=== PATIENT | female | born 1995 | race Caucasian/White ===

== ENCOUNTER 2017-01-04 12:52 | Emergency (ER) | payer OTHER ==
[~2017-01-04] VITALS: Ht 160 cm; Wt 59.0 kg
[2017-01-04 13:03] VITALS: BP 109/79
--- NOTE | 2017-01-04 13:35 | NUR ---
Patient to bed 9 at this time.
--- NOTE | 2017-01-04 13:36 | NUR ---
21/F BIB SELF FOR LOW BACK PAIN RT SIDE X 1 DAY. DENIES PAINFUL URINATION.DENIES N/V/D; SKIN IS PINK/WARM/DRY; AAOX4 WITH EVEN AND STEADY GAIT; LUNGS CLEAR BL; PT DENIES ANY FEVER, CP, SOB, OR COUGH AT THIS TIME; PATIENT STATES PAIN OF 6/10 AT THIS TIME; PATIENT POSITIONED FOR COMFORT; HOB ELEVATED; BEDRAILS UP X2; BED DOWN. ER MD MADE AWARE OF PT STATUS.
[2017-01-04 14:10] LABS: BILIRUBIN,URINE NEGATIVE (NEGATIVE); BLOOD, URINE 1+ (NEGATIVE); COLOR,URINE YELLOW (YELLOW); LEUKOCYTE ESTERASE ,URINE NEGATIVE (NEGATIVE); NITRITE, URINE NEGATIVE (NEGATIVE); UGLUCOSE NEGATIVE (NEGATIVE)
[2017-01-04 14:20] LABS: APPEARANCE,URINE CLEAR (CLEAR); RBC,URINE 0-5 (RARE) /HPF (0-5); WBC,URINE NONE SEEN /HPF (0-5)
--- NOTE | 2017-01-04 14:20 | NUR ---
US AT BEDSIDE
--- NOTE | 2017-01-04 15:00 | NUR ---
Patient appears to be resting comfortably in bed. Vital Signs within normal limits. Respirations even and unlabored.WILL CONTINUE TO MONITOR.
--- NOTE | 2017-01-04 16:31 | NUR ---
Patient being reevaluated by DR CRAIN at bedside.
[2017-01-04 16:42] VITALS: BP 102/60
== END 2017-01-04 16:42 | disposition home or self-care (01) ==
LOC: MED 12:52
DX: R10.9 Unspecified abdominal pain (principal); M54.5 Low back pain; Z88.0 Allergy status to penicillin
CPT/HCPCS: 36415; 76700; 76856; 81001; 81025; 84702; 99285; Q0092

== ENCOUNTER 2017-04-09 10:41 | Emergency (ER) | payer OTHER ==
[~2017-04-09] VITALS: Ht 160 cm; Wt 595.6 kg
[2017-04-09 10:56] VITALS: BP 124/65
--- NOTE | 2017-04-09 12:20 | NUR ---
PATIENT PRESENTS TO ED WITH PELVIC CRAMPING X 1 WK . PT STATES . DENIES N/V/D; SKIN IS PINK/WARM/DRY; AAOX4 WITH EVEN AND STEADY GAIT; LUNGS CLEAR BL; HR EVEN AND REGULAR; PT DENIES ANY FEVER, CP, SOB, OR COUGH AT THIS TIME; PATIENT STATES PAIN OF 8/10 AT THIS TIME; VSS; PATIENT POSITIONED FOR COMFORT; HOB ELEVATED; BEDRAILS UP X2; BED DOWN. ER MD MADE AWARE OF PT STATUS.
[2017-04-09] MEDS: DEXT 5% / LACT RING 1,000 ML IV ONE (13:35)
--- NOTE | 2017-04-09 14:00 | NUR ---
ULTRASOUND AT BEDSIDE
[2017-04-09 14:06] LABS: BASOPHILS # (AUTO) 0.2 K/uL (0.00-0.22); BASOPHILS % (AUTO) 2.8 % (0.0-2.0); EOSINOPHILS % (AUTO) 0.4 % (0.0-4.0); HEMATOCRIT 37.4 % (36-48); HEMOGLOBIN 12.9 g/dL (12.0-16.0); LYMPHOCYTES # (AUTO) 1.4 K/uL (2.5-16.5); LYMPHOCYTES % (AUTO) 20.9 % (20.5-51.1); MEAN CORPUSCULAR HEMOGLOBIN 31 pg (27-31); MEAN CORPUSCULAR HGB CONC 35 g/dL (33-37); MEAN CORPUSCULAR VOLUME 89 fL (80-94); MONOCYTES # (AUTO) 0.4 K/uL (0.8-1.0); MONOCYTES % (AUTO) 6.6 % (1.7-9.3); NEUTROPHILS # (AUTO) 4.7 K/uL (1.8-7.7); NEUTROPHILS % (AUTO) 69.3 % (42.2-75.2); PLATELET COUNT (AUTO) 196 K/uL (140-450); RED BLOOD CELL COUNT(AUTO) 4.21 MIL/uL (4.20-5.40); WHITE BLOOD COUNT (AUTO) 6.7 K/uL (4.8-10.8)
[2017-04-09 14:08] LABS: APPEARANCE,URINE CLEAR (CLEAR); BILIRUBIN,URINE NEGATIVE (NEGATIVE); BLOOD, URINE NEGATIVE (NEGATIVE); COLOR,URINE YELLOW (YELLOW); LEUKOCYTE ESTERASE ,URINE NEGATIVE (NEGATIVE); NITRITE, URINE NEGATIVE (NEGATIVE); PH,URINE 7.5 (5.0-9.0); UGLUCOSE NEGATIVE (NEGATIVE)
--- NOTE | 2017-04-09 14:09 | NUR ---
BLOOD COLLECTED BY LAB
--- NOTE | 2017-04-09 17:07 | NUR ---
Patient discharged with v/s stable. Written and verbal after care instructions given and explained. Patient alert, oriented and verbalized understanding of instructions. Ambulatory with steady gait. All questions addressed prior to discharge. ID band removed. Patient advised to follow up with PMD. Rx of MISSION given. Patient educated on indication of medication including possible reaction and side effects. Opportunity to ask questions provided and answered.
[2017-04-09 17:08] VITALS: BP 116/78
== END 2017-04-09 17:07 | disposition home or self-care (01) ==
LOC: MED 10:41
DX: O26.891 Other specified pregnancy related conditions, first trimester (principal); R10.2 Pelvic and perineal pain; Z3A.01 Less than 8 weeks gestation of pregnancy
CPT/HCPCS: 36415; 76817; 81003; 81025; 84702; 85025; 86900; 86901; 96365; 96366; 99285; Q0092

== ENCOUNTER 2021-04-19 08:19 | Emergency (ER) | payer OTHER ==
[~2021-04-19] VITALS: Ht 157.5 cm; Wt 67.6 kg
[2021-04-19 08:35] VITALS: BP 116/76
--- NOTE | 2021-04-19 08:55 | NUR ---
md assessing in triage room at this time
[2021-04-19] MEDS ORDERED: PYR100 PO (09:03)
[2021-04-19] MEDS ORDERED: CEPH250C16 PO (09:03)
[2021-04-19 09:28] VITALS: BP 116/76
--- NOTE | 2021-04-19 09:29 | NUR ---
Patient discharged with v/s stable. Written and verbal after care instructions given and explained. Patient alert, oriented and verbalized understanding of instructions. Ambulatory with steady gait. All questions addressed prior to discharge. ID band removed. Patient advised to follow up with PMD. Rx of cephalexin, phenazopyridine hcl (sent) given. Patient educated on indication of medication including possible reaction and side effects. Opportunity to ask questions provided and answered. work note given
== END 2021-04-19 09:29 | disposition home or self-care (01) ==
LOC: MED 08:19
DX: N39.0 Urinary tract infection, site not specified (principal); Z79.899 Other long term (current) drug therapy
CPT/HCPCS: 81002; 81025; 99283

== ENCOUNTER 2021-05-17 02:10 | Emergency (ER) | payer OTHER ==
[~2021-05-17] VITALS: Ht 157.5 cm; Wt 68.0 kg
[~2021-05-17 02:10] MED LIST: CEPH250C16 PO; PYR100 PO
[2021-05-17 02:25] VITALS: BP 135/89
--- NOTE | 2021-05-17 02:28 | NUR ---
TO LOBBY A/W BED AMBULATORY
[2021-05-17] MEDS ORDERED: KETOROLAC 15 MG/ML VIAL IVP ONE (03:15)
[2021-05-17] MEDS ORDERED: NACL 0.9% 1,000 ML IV ONE (03:15)
[2021-05-17] MEDS ORDERED: ONDANSETRON 4 MG/2 ML VIAL IVP ONE (03:15)
--- NOTE | 2021-05-17 03:30 | NUR ---
URINE TAKEN TO LAB
[2021-05-17] MEDS ORDERED: MORPHINE SULFATE 4 MG/ML SYR IVP ONE (03:35)
[2021-05-17 03:43] LABS: BASOPHILS % (AUTO) 0.5 % (0.0-2.0); EOSINOPHILS % (AUTO) 0.4 % (0.0-4.0); HEMATOCRIT 37.8 % (36-48); HEMOGLOBIN 12.5 g/dL (12.0-16.0); LYMPHOCYTES # (AUTO) 0.8 K/uL (2.5-16.5); LYMPHOCYTES % (AUTO) 7.9 % (20.5-51.1); MEAN CORPUSCULAR HEMOGLOBIN 31 pg (27-31); MEAN CORPUSCULAR HGB CONC 33 g/dL (33-37); MEAN CORPUSCULAR VOLUME 92.7 fL (80-94); MONOCYTES # (AUTO) 0.4 K/uL (0.8-1.0); MONOCYTES % (AUTO) 4.1 % (1.7-9.3); NEUTROPHILS # (AUTO) 9.3 K/uL (1.8-7.7); PLATELET COUNT (AUTO) 200 K/uL (140-450); RED BLOOD CELL COUNT(AUTO) 4.07 MIL/uL (4.20-5.40); RED CELL DISTRIBUTION WIDTH 13.3 % (11.6-13.7); WHITE BLOOD COUNT (AUTO) 10.7 K/uL (4.8-10.8)
[2021-05-17 03:44] LABS: BILIRUBIN,URINE NEGATIVE (NEGATIVE); BLOOD, URINE 3+ (NEGATIVE); COLOR,URINE YELLOW (YELLOW); LEUKOCYTE ESTERASE ,URINE NEGATIVE (NEGATIVE); NITRITE, URINE NEGATIVE (NEGATIVE); PH,URINE 7.5 (5.0-9.0); UGLUCOSE NEGATIVE (NEGATIVE)
--- NOTE | 2021-05-17 03:50 | NUR ---
26 Y/O FEMALE PATIENT PRESENTS TO ED WITH C/O LEFT ABD PAIN X TODAY. PT STATES PAIN RADIATES TO THE RIGHT SIDE OF THE ABD, IT IS SHARP AND CONSTANT. DENIES V/D; REPORTS STOOL IS SOFTER THAN USUAL X 6 DAYS; SKIN IS PINK/WARM/DRY; AAOX4 WITH EVEN AND STEADY GAIT; LUNGS CLEAR BL; HR EVEN AND REGULAR; PT DENIES ANY FEVER, CP, SOB, OR COUGH AT THIS TIME; PATIENT STATES PAIN OF 7/10 AT THIS TIME; VSS; PATIENT POSITIONED FOR COMFORT; HOB ELEVATED; BEDRAILS UP X1; BED DOWN. PMEDHX: DENIES NKDA
--- NOTE | 2021-05-17 04:00 | NUR ---
ultrasound at the bedside
[2021-05-17 04:03] LABS: ALBUMIN 3.9 g/dL (3.4-5.0); ANION GAP 4.4 (8-16); APPEARANCE,URINE SLIGHTLY HAZY (CLEAR); CARBON DIOXIDE 30.4 mmol/L (21-32); CREATININE 0.7 mg/dL (0.6-1.3); MAGNESIUM 1.7 mg/dL (1.8-2.4); PHOSPHORUS 3.6 mg/dL (2.5-4.9); POTASSIUM 3.8 mmol/L (3.5-5.1); TOTAL BILIRUBIN 0.3 mg/dL (0.0-1.0)
[2021-05-17 04:06] LABS: RBC,URINE 11-20 (MOD) /HPF (0-5)
--- NOTE | 2021-05-17 04:10 | NUR ---
INFORMED PT ABOUT A POSITIVE TEST AND SINCE PT HAS SAID HER PERIOD WAS 05/06, SHE WAS GIVEN STRONG PAIN MEDICATION. PT STATED "ITS OK I DIDNT THINK I WAS SINCE I GOT MY PERIOD".
[2021-05-17 04:13] LABS: NEUTROPHILS % (AUTO) 87.1 % (42.2-75.2)
[2021-05-17] MEDS ORDERED: ACETAMINOPHEN 325 MG TAB PO ONE (05:55)
[2021-05-17] MEDS ORDERED: cephALEXin 500 MG CAP PO ONE (06:15)
[2021-05-17] MEDS ORDERED: CEPH-588 PO (06:27)
--- NOTE | 2021-05-17 06:46 | NUR ---
PT APPEARS TO BE RESTING. EQUAL RISE AND FALL OF CHEST WALL. VSS. PT IS IN STABLE CONDITION. ALL NEEDS MET AT THIS TIME. BED LOCKED IN LOWEST POSITION, SIDE RAILS X1. MOTHER AT BEDSIDE.
--- NOTE | 2021-05-17 07:16 | NUR ---
Report and continuation of care received from ADRIÁN Roth.
[2021-05-17 08:53] VITALS: BP 103/61
--- NOTE | 2021-05-17 08:53 | NUR ---
Chart checked and completed. The patient's care was reviewed and supervised by Enrrique Bob, RN, RN.
--- NOTE | 2021-05-17 08:54 | NUR ---
Patient discharged with FOR VAGINAL BLEEDING DURING , FIRST TRIMESTER AND ABDOMINAL PAIN v/s stable. Written and verbal after care instructions given. Patient alert, oriented and verbalized understanding of instructions. Ambulatory with steady gait. All questions addressed prior to discharge. ID band removed. Patient advised to follow up with PMD. Rx of CEPHALEXIN given. Opportunity to ask questions provided and answered. WORK OFF NOTE HANDED TO PATIENT.
== END 2021-05-17 08:54 | disposition home or self-care (01) ==
LOC: MED 02:10
DX: O20.8 Other hemorrhage in early pregnancy (principal); O23.41 Unspecified infection of urinary tract in pregnancy, first trimester; F12.90 Cannabis use, unspecified, uncomplicated; Z79.899 Other long term (current) drug therapy; Z98.890 Other specified postprocedural states
CPT/HCPCS: 36415; 76705; 76801; 76856; 80053; 81001; 81025; 83690; 83735; 84100; 84702; 85025; 86900; 86901; 87086; 96361; 96374; 96375; 99285; J1885; J2270; J2405; J7030; Q0092

== ENCOUNTER 2021-05-19 14:39 | Emergency (ER) | payer OTHER ==
[~2021-05-19] VITALS: Ht 157.5 cm; Wt 67.3 kg
[~2021-05-19 14:39] MED LIST changes: +CEPH-588 PO
[2021-05-19 14:52] VITALS: BP 122/61
--- NOTE | 2021-05-19 16:16 | NUR ---
Patient discharged with v/s stable. Written and verbal after care instructions given and explained. Patient verbalized understanding. Ambulatory with steady gait. All questions addressed prior to discharge. Advised to follow up with PMD. PT SEEN AND D/C BY DR DUKES, NO NURSING INTERVENTIONS PROVIDED
== END 2021-05-19 16:16 | disposition home or self-care (01) ==
LOC: MED 14:39
DX: O03.9 Complete or unspecified spontaneous abortion without complication (principal)
CPT/HCPCS: 36415; 84702; 99283

== ENCOUNTER 2021-05-22 16:10 | Emergency (ER) | payer OTHER ==
[~2021-05-22] VITALS: Ht 157.5 cm; Wt 67.1 kg
[2021-05-22 16:44] VITALS: BP 110/72
--- NOTE | 2021-05-22 17:11 | NUR ---
labs drawn at [facility] by phleb rashard
[2021-05-22 17:37] LABS: BASOPHILS % (AUTO) 0.5 % (0.0-2.0); EOSINOPHILS % (AUTO) 0.9 % (0.0-4.0); HEMATOCRIT 36.7 % (36-48); HEMOGLOBIN 12.5 g/dL (12.0-16.0); LYMPHOCYTES # (AUTO) 1.3 K/uL (2.5-16.5); LYMPHOCYTES % (AUTO) 27.3 % (20.5-51.1); MEAN CORPUSCULAR HEMOGLOBIN 31 pg (27-31); MEAN CORPUSCULAR HGB CONC 34 g/dL (33-37); MEAN CORPUSCULAR VOLUME 91.5 fL (80-94); MONOCYTES # (AUTO) 0.4 K/uL (0.8-1.0); MONOCYTES % (AUTO) 8.4 % (1.7-9.3); NEUTROPHILS # (AUTO) 3.1 K/uL (1.8-7.7); NEUTROPHILS % (AUTO) 62.9 % (42.2-75.2); PLATELET COUNT (AUTO) 210 K/uL (140-450); RED BLOOD CELL COUNT(AUTO) 4.01 MIL/uL (4.20-5.40); RED CELL DISTRIBUTION WIDTH 13.3 % (11.6-13.7); WHITE BLOOD COUNT (AUTO) 4.9 K/uL (4.8-10.8)
[2021-05-22 17:49] LABS: APPEARANCE,URINE CLEAR (CLEAR); BILIRUBIN,URINE NEGATIVE (NEGATIVE); BLOOD, URINE 3+ (NEGATIVE); LEUKOCYTE ESTERASE ,URINE NEGATIVE (NEGATIVE); NITRITE, URINE NEGATIVE (NEGATIVE); PH,URINE 6.5 (5.0-9.0); UGLUCOSE NEGATIVE (NEGATIVE)
[2021-05-22 17:56] LABS: COLOR,URINE YELLOW (YELLOW)
[2021-05-22 18:25] LABS: RBC,URINE 11-20 (MOD) /HPF (0-5); WBC,URINE NONE SEEN /HPF (0-5)
--- NOTE | 2021-05-22 18:27 | NUR ---
name called in lobby, no answer at this time
--- NOTE | 2021-05-22 18:47 | NUR ---
PT AMBULATED TO ER BED 11 WITH A STEADY GAIT.
--- NOTE | 2021-05-22 18:54 | NUR ---
26 Y/O FEMALE C/O ABDOMINAL PAIN 08/15 DESCRIBES CRAMPING X1DAY. PT STATES SHE USUALLY HAS A HEAVIER PERIOD, WAS CALLED BY PCP AND TOLD HCG LEVELS WERE GOING UP. DENIES FEVER/CHILLS. DENIES N/V/D. DENIES PMH NKA
[2021-05-22] MEDS ORDERED: ACET-8386 PO (19:08)
[2021-05-22] MEDS ORDERED: IBUP-2213 PO (19:08)
[2021-05-22] MEDS ORDERED: ONDA8TAB87 PO (19:08)
[2021-05-22 19:17] VITALS: BP 103/64
--- NOTE | 2021-05-22 19:17 | NUR ---
Patient discharged with v/s stable. Written and verbal after care instructions given ABDOMINAL PAIN AND MISCARRIAGE and explained. Patient alert, oriented and verbalized understanding of instructions. Ambulatory with steady gait. All questions addressed prior to discharge. ID band removed. Patient advised to follow up with PMD. Rx oF IBUOROFEN, NORCO, AND ZOFRAN given. Patient educated on indication of medication including possible reaction and side effects. Opportunity to ask questions provided and answered.
== END 2021-05-22 19:17 | disposition home or self-care (01) ==
LOC: MED 16:10
DX: O03.9 Complete or unspecified spontaneous abortion without complication (principal); F12.90 Cannabis use, unspecified, uncomplicated; Z98.890 Other specified postprocedural states; Z79.899 Other long term (current) drug therapy
CPT/HCPCS: 36415; 76817; 81001; 81025; 84702; 85025; 99284; Q0092